=== PATIENT | female | born 1935 | race Caucasian/White ===

== ENCOUNTER 2017-03-03 14:15 | Emergency (ER) | payer MEDICARE, OTHER ==
[~2017-03-03] VITALS: Ht 172.7 cm; Wt 80.0 kg
[~2017-03-03 14:15] MED LIST: CALC-137 PO; CHERSOL PO; CYMB60CA PO; FISH1000 PO; GLUC500C56 PO; IPRA0.03; IPRAAER IN; MULT-65 PO; OMEP20TA39 PO; PROBCAP28 PO; RIVA4.6T TD; ROLACHW21 PO; ULTR50TA PO; VICOTAB4 PO; VITA100017 PO; VITA10002 SL
[2017-03-03 14:18] VITALS: BP 145/72; PULSE 87; RESP 14; TEMP 98.4; O2SAT 93
[2017-03-03] MEDS ORDERED: MULTCAP3 PO (17:09)
[2017-03-03] MEDS ORDERED: LACTCAP8 PO (17:09)
[2017-03-03] MEDS ORDERED: DULO1CAP3 PO (17:09)
[2017-03-03] MEDS ORDERED: OMEGCAP PO (17:09)
[2017-03-03] MEDS ORDERED: ASCO1TAB14 PO (17:09)
[2017-03-03] MEDS ORDERED: CALC1TAB87 PO (17:09)
[2017-03-03] MEDS ORDERED: [UNRECOGNIZED DRUG - CODE] PO (17:09)
[2017-03-03] MEDS ORDERED: IPRAAER INH (17:09)
[2017-03-03] MEDS ORDERED: VITA10002 PO (17:09)
[2017-03-03] MEDS ORDERED: OMEP20TA93 PO (17:09)
[2017-03-03] MEDS ORDERED: CALC1CHW35 CHEW (17:09)
[2017-03-03] MEDS ORDERED: RIVA4.6T T-DERMAL (17:09)
[2017-03-03] MEDS ORDERED: IPRA0.06 EACH NARE (17:09)
[2017-03-03] MEDS ORDERED: GLUC500T4 PO (17:09)
[2017-03-03] MEDS ORDERED: TRAM50TA PO (17:09)
--- NOTE | 2017-03-03 17:22 | PD ---
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 Symptoms started 2 days ago shortly after receiving the flu shot at [employer]. She reports subjective fevers and chills. She has had a nonproductive cough. She was seen by her mobile home set up person Dr. irvin today who referred her to the emergency department for further evaluation. No history of DVT or PE. No leg pain or swelling. No chest pain. PFSH Past Medical History Arthritis: Yes Asthma: Yes (slight) Blood Disorders: No Depression: Yes Cancer: No Cardiovascular Problems: No Diabetes: No Endocrine: No GERD: Yes Glaucoma: No Genitourinary: No Hepatitis: No Hiatal Hernia: Yes (SILENT REFLUX) Hypertension: No Immune Disorder: No Musculoskeletal: Yes (PAIN RIGHT LEG AND BACK) Neurologic: Yes (NEUROPATHY [place] FEET; ACOUSTIC NEUROMA SX (1991)) Psychiatric: No Reproductive: No Respiratory: Yes (BRONCHIECTASIS) Thyroid Disease: No Past Surgical History Abdominal Surgery: Yes (APPY, LYSIS ADHESIIONS) AICD: No Cardiac Surgery: No Ear Surgery: Yes (EXC. acoustic neuroma RIGHT EAR) Endocrine Surgery: No Eye Surgery: No Genitourinary Surgery: No Gynecologic Surgery: Yes (HYSTERECTOMY) Joint Replacement: Yes (LEFT HIP) Oral Surgery: Yes (T & A) Pacemaker: No Thoracic Surgery: No Social History Alcohol Use: No Tobacco Use: No Substance Use: No Allergies-Medications (Allergen,Severity, Reaction): Coded Allergies: acetaminophen (Unverified Allergy, Severe, hives, 03/03/17) SWELLING AND BURNING bee venom protein (honey bee) (Unverified Allergy, Severe, anaphylaxis, ) clindamycin (Unverified Allergy, Severe, 03/03/17) NUMBNESS AND FACE SWELLING penicillin G (Unverified Allergy, Severe, numbness and facial swelling, ) vancomycin (Unverified Allergy, Mild, PT FEELS IT MADE HER HEAD BURNED, ) Reported Meds & Prescriptions Reported Meds & Active Scripts Active Reported Probiotic (Lactobacillus Acidophilus) 10 Billion Cell Cap 1 Cap PO DAILY Omeprazole 20 Mg Tab 20 Mg PO DAILY Multivitamins (Multiple Vitamin) 1 Cap Cap 1 Tab PO DAILY Combivent Respimat Inh (Ipratropium-Albuterol Inh) 20-100 Prison/Act Aero 1 Puff INH QID Ipratropium Nasal 0.06% [place] 2 [place] EACH NARE QID Glucosamine-Chondroitin 500-400 Mg Tab 1 Tab PO DAILY Duloxetine DR (Duloxetine HCl) 60 Mg Capdr 60 Mg PO DAILY Vitamin B-12 (Cyanocobalamin) 1,000 Mcg Tab 1,000 Mcg PO DAILY Rolaids (Calcium Carbonate-Mag Hydroxide) 550-110 Mg Chew 2 Tab CHEW TID PRN Calcium 600 with Vitamin D (Calcium Carbonate-Cholecalciferol) 600-400 mg-Unit Tab 1 Tab PO DAILY C-1000 (Ascorbic Acid) 1,000 Mg Tablet 1 Tab PO DAILY Review of Systems Except as stated in HPI: all other systems reviewed are Neg Physical Exam Narrative GENERAL: Well-developed, well-nourished, comfortable, no apparent distress. SKIN: Focused skin assessment warm/dry. HEAD: Atraumatic. Normocephalic. EYES: Pupils equal and round. No scleral icterus. No injection or drainage. ENT: Mucous membranes pink and moist. NECK: Trachea midline. No JVD. CARDIOVASCULAR: Regular rate and rhythm. No murmur appreciated. RESPIRATORY: No accessory muscle use. Mild end expiratory wheezes bilaterally. No rales or rhonchi. Breath sounds equal bilaterally. GASTROINTESTINAL: Abdomen soft, non-tender, nondistended. Hepatic and splenic margins not palpable. MUSCULOSKELETAL: No obvious deformities. No clubbing. No cyanosis. No edema. NEUROLOGICAL: Awake and alert. No obvious cranial nerve deficits. Motor grossly within normal limits. Normal speech. PSYCHIATRIC: Appropriate mood and affect; insight and judgment normal. Data Data Last Documented VS Vital Signs Date Time Temp Pulse Resp B/P (MAP) Pulse Ox O2 Delivery O2 Flow Rate FiO2 03/03/17 17:41 81 18 181/82 (115) 95 Room Air 03/03/17 14:18 98.4 Orders Orders Complete Blood Count With Diff (03/03/17 17:19) Comprehensive Metabolic Panel (03/03/17 17:19) Act Partial Throm Time (Ptt) (03/03/17 17:19) Prothrombin Time / Inr (Pt) (03/03/17 17:19) Ckmb (Isoenzyme) Profile (03/03/17 17:19) Troponin I (03/03/17:) Influenzae A/B Antigen (03/03/17 17:19) Iv Access Insert/Monitor (03/03/17 17:19) Electrocardiogram (03/03/17:) Ecg Monitoring (03/03/17:) Oximetry (03/03/17:) Oxygen Administration (03/03/17 17:) Chest, Single Ap (03/03/17 17:19) Sodium Chloride 0.9% Flush (Ns Flush) (03/03/17 17:30) Methylprednisolone So Succ Inj (Solumedr (03/03/17 17:30) Albuterol-Ipratropium Neb (Duoneb Neb) (03/03/17 17:30) Labs Laboratory Tests Test 03/03/17 17:15 White Blood Count 11.9 TH/MM3 Red Blood Count 4.50 MIL/MM3 Hemoglobin 14.6 GM/DL Hematocrit 44.3 % Mean Corpuscular Volume 98.5 FL Mean Corpuscular Hemoglobin 32.5 PG Mean Corpuscular Hemoglobin Concent 33.0 % Red Cell Distribution Width 13.5 % Platelet Count 218 TH/MM3 Mean Platelet Volume 8.0 FL Neutrophils (%) (Auto) 74.9 % Lymphocytes (%) (Auto) 14.8 % Monocytes (%) (Auto) 8.2 % Eosinophils (%) (Auto) 1.8 % Basophils (%) (Auto) 0.3 % Neutrophils # (Auto) 8.9 TH/MM3 Lymphocytes # (Auto) 1.8 TH/MM3 Monocytes # (Auto) 1.0 TH/MM3 Eosinophils # (Auto) 0.2 TH/MM3 Basophils # (Auto) 0.0 TH/MM3 CBC Comment DIFF FINAL Differential Comment Prothrombin Time 10.0 SEC Prothromb Time International Ratio 0.9 RATIO Activated Partial Thromboplast Time 26.4 SEC Blood Urea Nitrogen 21 MG/DL Creatinine 0.78 MG/DL Random Glucose 97 MG/DL Total Protein 7.5 GM/DL Albumin 3.5 GM/DL Calcium Level 9.0 MG/DL Alkaline Phosphatase 120 U/L Aspartate Amino Transf (AST/SGOT) 25 U/L Alanine Aminotransferase (ALT/SGPT) 38 U/L Total Bilirubin 0.5 MG/DL Sodium Level 139 MEQ/L Potassium Level 4.5 MEQ/L Chloride Level 102 MEQ/L Carbon Dioxide Level 27.1 MEQ/L Anion Gap 10 MEQ/L Estimat Glomerular Filtration Rate 71 ML/MIN Total Creatine Kinase 76 U/L Troponin I LESS THAN 0.02 NG/ML MDM Medical Decision Making Medical Screen Exam Complete: Yes Emergency Medical Condition: Yes Medical Record Reviewed: Yes Interpretation(s) EKG: Sinus with sinus arrhythmia, rate 73, normal axis, normal intervals, no acute ischemic abnormality. Differential Diagnosis Pneumonia, bronchitis, influenza, viral illness, anemia, metabolic abnormality, PE, ACS Narrative Course Initial vital signs show heart rate 87, blood pressure 145/72, pulse ox 93% on room air, oral temp of 98.4F. CBC: WBC 11.9, hemoglobin 14.6, hematocrit 44.3, platelets 218. Neutrophils 75% . CMP is unremarkable. Cardiac enzymes are negative. Influenza is negative. Chest x-ray: No acute cardio pulmonary disease. The patient was given 3 DuoNeb treatments and IV Solu-Medrol and reports she is feeling improved. She was made aware of all findings. She is overall very well -appearing and is comfortable, no respiratory distress. She is stable for discharge home with outpatient follow-up with her primary care physician or her mobile home set up person this week. I will start her on a Z-Micha as well as a short course of prednisone. She has an albuterol inhaler at home. She was informed on when to return to the emergency department. She verbalizes understanding and agreement with plan. Diagnosis Primary Impression: Bronchitis Referrals: Jen Irvin MD 3 days Primary Care Physician 3 days Additional Instructions: Follow-up with your primary care physician this week. Follow-up with your mobile home set up person this week. Take medications as prescribed. Return to the emergency department for worsening symptoms or any other concerns. Scripts Prednisone (Prednisone) 50 Mg Tab 50 MG PO DAILY for 5 Days, #5 TAB 0 Refills Prov: Geovany Wilder MD 03/03/17 Azithromycin (Zithromax Z-Micha) 250 Mg Dspk 250 MG PO DIRECTED for Infection, #1 DSPK 0 Refills 500 MG (2 tabs) day 1, then 1 tab days 2-5. Prov: Geovany Wilder MD 03/03/17 Disposition: 01 DISCHARGE HOME Condition: Stable Geovany Wilder MD Mar 03, 2017 17:21
[2017-03-03] MEDS ORDERED: SODIUM CHLORIDE 0.9% FLUSH 10 ML FLUSH IVF PRN (17:30)
[2017-03-03] MEDS ORDERED: methylPREDNISolone SOD SUCC 125 MG/2 ML VIAL IV PUSH ONE (17:30)
[2017-03-03 17:41] VITALS: BP 181/82; PULSE 81; RESP 18; O2SAT 95
[2017-03-03] MEDS: RESP: ALBUTEROL 2.5 MG/IPRATROPIUM 0.5 MG NEB (SCH) INH ×3 (17:45→17:58)
[2017-03-03 17:46] LABS: AUTOMATED NEUTROPHIL # 8.9 TH/MM3 (1.8-7.7); BASOPHIL % 0.3 % (0.0-2.0); EOSINOPHIL # 0.2 TH/MM3 (0-0.4); EOSINOPHIL % 1.8 % (0.0-4.0); HEMATOCRIT 44.3 % (35.0-46.0); HEMO FLAGS DIFF FINAL; LYMPH % 14.8 % (9.0-44.0); LYMPHOCYTE # 1.8 TH/MM3 (1.0-4.8); MEAN CELL VOLUME 98.5 FL (80.0-100.0); MEAN CORPUSCULAR HEMOGLOBIN 32.5 PG (27.0-34.0); MONO % 8.2 % (0.0-8.0); NEUT % 74.9 % (16.0-70.0); PLATELET COUNT 218 TH/MM3 (150-450); RED CELL DISTRIBUTION WIDTH 13.5 % (11.6-17.2); WHITE BLOOD COUNT 11.9 TH/MM3 (4.0-11.0)
[2017-03-03 17:56] LABS: APTT (PATIENT) 26.4 SEC (24.3-30.1); INTERNATIONAL NORMALIZED RATIO 0.9 RATIO
--- NOTE | 2017-03-03 18:02 | RADRPT ---
EXAM DATE/TIME: 03/03/2017 17:55 [facility] COMPARISON: No previous studies available for comparison. INDICATIONS : Shortness of breath and cough. MEDICAL HISTORY : None. SURGICAL HISTORY : None. ENCOUNTER: Initial ACUITY: 4 - 6 days PAIN SCORE: 0/10 LOCATION: chest FINDINGS: A single view of the chest demonstrates the lungs to be symmetrically aerated without evidence of mas s, infiltrate or effusion. The cardiomediastinal contours are unremarkable. Osseous structures are intact. There is prominence of the aortic knob is with calcification characteristic of atheroscleroti c vascular disease. There is mild scoliotic deformity convex to the left. CONCLUSION: 1. No acute cardiopulmonary disease. Sang Calrisle MD on March 03, 2017 at 18:00 Board Certified Radiologist. This report was verified electronically.
[2017-03-03 18:15] LABS: ALKALINE PHOSPHATASE 120 U/L (45-117); ALT (GPT) 38 U/L (10-53); ANION GAP 10 MEQ/L (5-15); AST (GOT) 25 U/L (15-37); BICARBONATE 27.1 MEQ/L (21.0-32.0); BLOOD UREA NITROGEN 21 MG/DL (7-18); CHLORIDE 102 MEQ/L (98-107); GLOMERULAR FILTRATION RATE 71 ML/MIN (>89); POTASSIUM 4.5 MEQ/L (3.5-5.1); SODIUM (NA) 139 MEQ/L (136-145); TOTAL BILIRUBIN ADULT 0.5 MG/DL (0.2-1.0)
[2017-03-03 18:30] LABS: CREATINE KINASE 76 U/L (26-192)
[2017-03-03] MEDS ORDERED: PRED50 PO (18:50)
[2017-03-03] MEDS ORDERED: ZITHTAB PO (18:50)
[2017-03-03 18:57] VITALS: BP 184/76; PULSE 90; RESP 21; O2SAT 94
--- NOTE | 2017-03-05 08:58 | EKG ---
Date Performed: 03/03/2017 Time Performed: 17:36:11 PTAGE: 81 years EKG: Sinus rhythm WITH SINUS ARRHYTHMIA Compared to prior tracing no significant change NORMAL ECG PREVIOUS TRACING : 12/22/2014 11.19 DOCTOR: Juan José Gorman Interpretating Date/Time 03/05/2017 08:57:24
== END 2017-03-03 19:04 | disposition home or self-care (01) ==
LOC: NEPD 14:15
DX: J40 Bronchitis, not specified as acute or chronic (principal); R53.1 Weakness; I49.8 Other specified cardiac arrhythmias; M19.90 Unspecified osteoarthritis, unspecified site; J45.909 Unspecified asthma, uncomplicated; F32.9 Major depressive disorder, single episode, unspecified; K21.9 Gastro-esophageal reflux disease without esophagitis; G62.9 Polyneuropathy, unspecified; Z79.899 Other long term (current) drug therapy
CPT/HCPCS: 71010; 80053; 82550; 84484; 85025; 85610; 85730; 87804; 93005; 94640; 94664; 96374; 99285; J2930